=== PATIENT | female | born 1975 | race Caucasian/White ===

== ENCOUNTER 2022-11-06 07:25 | Day surgery (SDC) | payer BC, SELFPAY ==
[2022-11-06] VITALS (14 sets, daily range): BP systolic 102–137; BP diastolic 48–78; PULSE 50–74; RESP 14–18; TEMP 36.3–36.9; O2SAT 93–98; BMI 46.2
[2022-11-06] MEDS: LACTATED RINGERS 1000 ML 1,000 ML 100 ML IV (06:55)
[2022-11-06] MEDS: SODIUM CHLORIDE 0.9 % (FLUSH) 10 ML SYRINGE IVF (08:05)
--- NOTE | 2022-11-06 08:07 | SUR.PREOP ---
Pts states she has had a hysterectomy no ucg needed
--- NOTE | 2022-11-06 08:47 | W.ANESCHARGE ---
Anesthesia Charges Start Date/Time Anesthesia Start Date: 11/06/22 Anesthesia Start Time: 08:51 Stop Date/Time Anesthesia Stop Date: 11/06/22 Anesthesia Stop Time: 10:56
[2022-11-06] MEDS: CEFAZOLIN 1 GM inj 3 GM IVP (09:03)
--- NOTE | 2022-11-06 10:22 | PM.GSPRC ---
Operative Note Date of procedure: 11/06/22 Pre-op diagnosis: Ventral hernia, incarcerated omentum Post-op diagnosis: Same Type of Procedure: Open ventral hernia repair with placement of mesh Indications: Patient is a 47-year-old female who presented to clinic with a symptomatic ventral hernia. Different treatment options were reviewed, including observation versus surgical intervention. Risks and benefits of operative intervention were discussed at length with the patient. Risks included but was not limited to: Bleeding, infection, risk of damage to surrounding structures, possible need for additional procedures, risk of recurrent and postoperative complications such as pneumonia, pulmonary emboli or CO. All questions and concerns were addressed with the patient agreeing to proceed. Procedure Description: After discussing the risks and benefits of the procedure, the patient signed informed consent.? The operative site was marked and the patient was brought to the operating room and placed on the operating table in supine position.? Care was taken to pad the patient's pressure points.?? The patient was then intubated by anesthesia.?? The operative site was then prepped and draped in the usual sterile fashion.? A time-out was then performed. A supraumbilical midline incision was made with a 15 blade scalpel. Subcutaneous tissue was dissected down with cautery. The hernia sac was encountered within the subcutaneous space. This was carefully dissected free circumferentially from the underlying fascia. Evidence of incarcerated omentum and preperitoneal fat. There was no evidence of any incarcerated bowel. The fascial defect measured approximately 4 cm x 4 cm in size. The fascia was cleared off circumferentially with electrocautery of subcutaneous fat. Once the hernia sac was dissected free from the fascial defect it was able to be reduced intra-abdominally. There was evidence of a small inferior defect, this was connected with the large defect by dissecting the fascial bridge. The resulting defect then measured 5 cm vertical by 4 cm transverse. A preperitoneal space was developed circumferentially to allow placement of a large piece of mesh. A Ventralight ST large, 8 cm circular mesh was chosen for the repair. The mesh was carefully placed within the preperitoneal pocket. It was secured in place transfascially at 6 points with interrupted 2 0 Prolene. The fascial defect was then closed with a running 0 Vicryl stitch, appropriately covering the entire mesh. The fascia was anesthetized with 0.25% Marcaine. Hemostasis was assured with electrocautery. The incision was then irrigated with normal saline. The incision was closed in layers with interrupted 2 0 Vicryl to bring together the subcutaneous space. 3-0 Vicryl was used to bring together the dermal edges and the subcutaneous tissue was brought together by running 4-0 Monocryl stitch. ? Sterile dressings were then applied and an abdominal binder placed. ? The patient was then woken and transported to the recovery area in stable condition. ? The patient tolerated the procedure well. Findings: Large ventral hernia, repaired with mesh. Anesthesia: GETA Surgeon: Aubree Skinner MD Estimated blood loss (mL): 15 Condition: stable Disposition: same day
[2022-11-06] MEDS: BUPIVACAINE 0.25% 30 ML INJECTION (10:35)
--- NOTE | 2022-11-06 10:55 | W.ANESCHARGE ---
Anesthesia Charges Start Date/Time Anesthesia Start Date: 11/06/22 Anesthesia Start Time: 08:51 Stop Date/Time Anesthesia Stop Date: 11/06/22 Anesthesia Stop Time: 10:56
[2022-11-06] MEDS: fentaNYL 100 MCG/2 ML inj 50 MCG IVP ×2 (11:09→11:19)
[2022-11-06] MEDS: KETOROLAC 15 MG/ML inj IVP (11:16)
[2022-11-06] MEDS: OXYCODONE 5 MG TABLET PO (11:42)
== END 2022-11-06 12:47 | disposition home or self-care (01) ==
LOC: OR 07:27
PROVIDERS: PCP Student in an Organized Health Care Education/Training Program; Visit Provider Surgery
PROC: (CPT 49594; principal; 2022-11-06 08:45)
DX: K43.6 Other and unspecified ventral hernia with obstruction, without gangrene (principal)
CPT/HCPCS: 49594; 00752; A4467; A9270; C1781; J0330; J0690; J1100; J1170; J1885; J2250; J2405; J2704; J2710; J3010; J3490; J7120

== ENCOUNTER 2023-02-07 09:41 | Emergency (ER) | payer BC, SELFPAY ==
[2023-02-07] VITALS (16 sets, daily range): BP systolic 125–179; BP diastolic 69–93; PULSE 62–86; RESP 20; TEMP 36.4; O2SAT 94–100; BMI 45.8
--- NOTE | 2023-02-07 09:56 | ED_ITS ---
HPI - Chest Pain General Time Seen by Provider: 09:56 Date Seen: 02/07/23 Chief Complaint: Chest Pain Stated Complaint: Elevated heartrate, short of breath Time Seen by Provider: 02/07/23 09:56 Source: patient, RN notes reviewed and old records reviewed Mode of arrival: ambulatory Limitations: no limitations History of Present Illness HPI narrative: Judie is a very pleasant 47-year-old female with history of white coat hypertension who comes to the emergency room after experiencing prolonged episode of chest pain with shortness of breath earlier at work. Patient notes that she has been under particular stress and describes difficulty sleeping and a lots of drama at work. She states that today she was at work and felt her heart start racing and beating very heavily in her chest. She then became diaphoretic and she could not catch her breath. Coworkers also told her that she ?looked awful?. This has happened once or twice before to her but she states that she usually just goes home takes a nap and feels better. She has a known ascending aortic aneurysm initially documented in 2019. Recent see follow-up notes no change. Currently in the emergency room she thinks she is feeling better. She is still quite tearful. She notes that she actually felt better when she left work. Patient had abdominal surgery 2 months ago to repair a ventral hernia. She has not noticed any unusual lower extremity edema or calf pain. She has not had DVT in the past. Related Data Home Medications Medication Instructions Recorded Confirmed cyanocobalamin (vitamin B-12) 1,000 mcg PO DAILY 11/05/22 11/06/22 1,000 mcg capsule furosemide 20 mg tablet (Lasix) 20 mg PO DAILY 11/05/22 11/06/22 metoprolol succinate 50 mg 50 mg PO DAILY 11/05/22 11/06/22 tablet,extended release 24 hr sennosides 8.6 mg-docusate sodium 1 tab-cap PO DAILY 11/05/22 11/06/22 50 mg capsule Previous Rx's Medication Instructions Recorded estradiol 0.5 mg tablet 0.5 mg PO QDAY #90 tabs 06/18/22 oxycodone 5 mg tablet 5 mg PO Q6H PRN pain #20 tabs 11/06/22 Allergies Allergy/AdvReac Type Severity Reaction Status Date / Time fluocinolone acetonide Allergy Mild contraindicated Verified 02/07/23 11:39 with aneurysm oxycodone Allergy Unknown Verified 02/07/23 11:39 Review of Systems Status of ROS Reports: 10 or more systems reviewed and unremarkable except as noted in History and below Const Denies: fever, chills or change in weight Eyes Denies: change in vision ENMT Denies: throat pain, neck pain, throat swelling or difficulty swallowing Cardio Reports: chest pain, lightheadedness and shortness of breath with exertion; Denies: palpitations or swelling of feet/ankles Resp Reports: shortness of breath; Denies: cough or wheezing GI Denies: abdominal pain, nausea, vomiting, diarrhea or difficulty swallowing Denies: painful urination Musculo Denies: back pain or neck pain Neuro Denies: headache, numbness in extremities, confusion or slurred speech Psych Reports: anxiety and panic attacks Endo Denies: excessive urination Allergy/Immuno Denies: throat swelling or wheezing PFSH PFSH Medical History Ascending aortic aneurysm ?I71.21 - Aneurysm of the ascending aorta, without rupture (ICD-10) Asthma ?J45.909 - Unspecified asthma, uncomplicated (ICD-10) Depression ?F32.A - Depression, unspecified (ICD-10) Common migraine ?G43.009 - Migraine without aura, not intractable, without status migrainosus (ICD-10) Surgical History Hx of wisdom tooth extraction ?K08.409 - Partial loss of teeth, unspecified cause, unspecified class (ICD- 10) Hx of total hip arthroplasty ?Z96.649 - Presence of unspecified artificial hip joint (ICD-10) Hx of dilation and curettage ?Z98.890 - Other specified postprocedural states (ICD-10) History of cardiac radiofrequency ablation ?Z98.890 - Other specified postprocedural states (ICD-10) Social History Smoking Status: Never smoker Do you use any of these nicotine containing products: None How often do you have a drink containing alcohol: monthly or less Alcohol type: wine How many standard drinks containing alcohol do you have on a typical day: 1 or 2 How often do you have six or more drinks on one occasion: Never AUDIT-C Alcohol total score: 1 Non-prescribed substance use: denies use Caffeine: Yes (diet coke) Are you using contraception or practicing any form of control: No Exam Narrative Exam Narrative: Patient is alert and oriented. Tearful when discussing increased stressors at home and work. Mentating normally with a GCS of 15. Head is atraumatic normocephalic. Neck is supple. Heart with a regular rate and rhythm. Lungs are clear bilaterally. Abdomen is soft and nontender. No pulsating mass. Lower extremity show scant peripheral edema. No calf tenderness and negative Homans sign. Moving all extremities without difficulty. Const Vital Signs, click to edit/add: Vital Signs - 24 hr 02/07/23 09:49 02/07/23 10:25 02/07/23 10:30 Temperature 97.5 F L Pulse Rate 70 70 Pulse Rate [Pulse Oximeter] 86 Respiratory Rate 20 Blood Pressure Blood Pressure [Right Upper Arm] 160/93 H Pulse Oximetry 98 99 98 Oxygen Delivery Method Room Air 02/07/23 10:32 02/07/23 10:45 02/07/23 11:13 Temperature Pulse Rate 71 66 78 Pulse Rate [Pulse Oximeter] Respiratory Rate Blood Pressure 133/69 Blood Pressure [Right Upper Arm] Pulse Oximetry 98 96 94 Oxygen Delivery Method 02/07/23 11:15 02/07/23 11:30 02/07/23 11:32 Temperature Pulse Rate 73 76 71 Pulse Rate [Pulse Oximeter] Respiratory Rate Blood Pressure 179/92 H Blood Pressure [Right Upper Arm] Pulse Oximetry 99 99 98 Oxygen Delivery Method 02/07/23 11:45 02/07/23 12:00 02/07/23 12:02 Temperature Pulse Rate 67 64 62 Pulse Rate [Pulse Oximeter] Respiratory Rate Blood Pressure 138/80 Blood Pressure [Right Upper Arm] Pulse Oximetry 98 96 98 Oxygen Delivery Method 02/07/23 12:03 02/07/23 12:15 02/07/23 12:30 Temperature Pulse Rate 63 67 62 Pulse Rate [Pulse Oximeter] Respiratory Rate Blood Pressure Blood Pressure [Right Upper Arm] Pulse Oximetry 98 97 100 Oxygen Delivery Method 02/07/23 12:32 Temperature Pulse Rate 68 Pulse Rate [Pulse Oximeter] Respiratory Rate Blood Pressure 125/87 Blood Pressure [Right Upper Arm] Pulse Oximetry 100 Oxygen Delivery Method Documenting provider has reviewed patient's vital signs: yes Course Course Hospital Course: At this time differential diagnosis includes but is not limited to panic attack, acute coronary event, arrhythmia, aortic pathology change, PE, Discussed with patient that she may be correct in the fact that this could have been a panic attack given pre-existing stressors. However, I would suggest laboratory values to be drawn including CBC, comprehensive, troponin, D-dimer as well as chest x-ray and EKG. She elects to do this as she has not had workup when these events happened in the past. Reevaluation(s) Reevaluation #1: Patient noted to have a reassuring EKG as well as troponin but a modest elevation of her D-dimer. Given recent history of intra-abdominal surgery will pursue CT of the chest to rule out PE. Patient is receptive of this plan. Reevaluation #2: CT negative for PE change in aneurysm size. Will follow up with ultrasound secondary to elevated D-dimer Reevaluation #3: Ultrasound negative for DVT. Patient continues to feel well. No evidence of arrhythmia on director digital catalogue. Vital Signs Vital signs: Initial Vital Signs Temperature 97.5 F L 02/07/23 09:49 Temperature Source Temporal Artery Scan 02/07/23 09:49 Pulse Rate 86 02/07/23 09:49 Respiratory Rate 20 02/07/23 09:49 Blood Pressure 160/93 H 02/07/23 09:49 Blood Pressure Mean 115 H 02/07/23 09:49 Blood Pressure Position Sitting 02/07/23 09:49 Pulse Oximetry 98 02/07/23 09:49 Oxygen Delivery Method Room Air 02/07/23 09:49 Vital Signs Temperature 97.5 F L 02/07/23 09:49 Pulse Rate 86 02/07/23 09:49 Respiratory Rate 20 02/07/23 09:49 Blood Pressure 160/93 H 02/07/23 09:49 Pulse Oximetry 98 02/07/23 09:49 Oxygen Delivery Method Room Air 02/07/23 09:49 Temperature 97.5 F L 02/07/23 09:49 Pulse Rate 68 02/07/23 12:32 Respiratory Rate 20 02/07/23 09:49 Blood Pressure 125/87 02/07/23 12:32 Pulse Oximetry 100 02/07/23 12:32 Oxygen Delivery Method Room Air 02/07/23 09:49 MDM - Chest Pain MDM Narrative Medical decision making narrative: 1. Atypical chest pain-patient had resolution of chest pain prior to arrival. Troponin negative x2. EKGs reassuring with normal sinus rhythm and no acute changes. Chest x-ray without evidence of widened mediastinum. No evidence of acute coronary syndrome. 2. Elevated D-dimer-no evidence of PE, aortic dissection or DVT. 3. Disposition -home at this time. Suggest follow-up with primary MD for further evaluation regarding anxiety and stress reactions. Seek medical attention return to the emergency room for worsening symptoms. Medical Records Data Attestation: I reviewed the patient's medical records. Lab Data Attestation: I reviewed the patient's lab results. Labs: Lab Results 02/07/23 02/07/23 Range/Units 10:00 12:10 WBC 4.48 L (4.50-11.00) K/uL RBC 4.05 (4.00-5.20) m/uL Hgb 11.4 L (12.0-16.0) gm/dL Hct 34.8 (33.0-51.0) % MCV 86 (80-100) fL MCH 28 (26-34) pg MCHC 33 (32-36) gm/dL RDW Coeff of Nayeli 13.1 (11.5-15.5) % Plt Count 266 (140-440) K/uL Neut % (Auto) 55.6 (42.0-72.0) % Lymph % (Auto) 26.3 (20-44) % [place] % (Auto) 9.4 (0.0-11.0) % Eos % (Auto) 8.3 H (0.0-7.0) % Baso % (Auto) 0.4 (0.0-3.0) % Neut # (Auto) 2.50 (1.7-7.0) K/uL Lymph # (Auto) 1.20 (0.90-2.90) K/uL [place] # (Auto) 0.40 (0.00-0.90) K/UL Eos # (Auto) 0.40 (0.00-0.50) K/uL Baso # (Auto) 0.00 (0.00-0.30) K/uL D-Dimer Quant (PE/DVT) 0.86 H (0.00-0.50) ug/ml Sodium 138 (135-149) mmol/L Potassium 3.9 (3.6-5.1) mmol/L Chloride 108 (96-114) mmol/L Carbon Dioxide 24 (20-32) mmol/L BUN 27 H (5-24) mg/dL Creatinine 0.7 (0.5-1.5) mg/dL Estimated Creat Clear 87.48 Estimated GFR 106 ml/min Glucose 107 (60-115) mg/dL Calcium 9.3 (8.4-10.6) mg/dL Magnesium 1.9 (1.5-2.6) mg/dL Total Bilirubin 0.2 (0.1-1.5) mg/dL AST 26 (12-35) U/L ALT 22 (4-35) U/L Alkaline Phosphatase 39 L (40-150) U/L Total Protein 7.1 (6.0-8.3) g/dL Albumin 4.3 (3.3-5.0) g/dL POC Troponin I 0.00 L 0.01 (0.01-0.04) ng/ml Imaging Data Chest x-ray: Attestation: I have reviewed the pertinent imaging results. My impression: No obvious infiltrates or widening of the mediastinum Radiologist's impression: Cardiovasculature and mediastinum:? Heart size and vasculature are normal in caliber and appearance.? Lungs and pleural spaces:? Lungs are clear.? No sign of infiltrate or mass. ?No sign of pleural effusion.? No pneumothorax.? Bones and soft tissues:? No significant findings. IMPRESSION: No acute or significant findings. CT scan - chest: Attestation: I have reviewed the pertinent imaging results. My impression: By my read no evidence of large PE. Radiologist's impression: Heart and vasculature: Contrast opacification of the pulmonary arterial tree is adequate. No sign of pulmonary embolism. Heart size is mildly enlarged. Thoracic aorta and pulmonary artery are normal in caliber. Lungs and pleura: No suspicious nodules or infiltrates.? No pleural effusions, pleural thickening, or pneumothorax. Lymph nodes/mediastinum: No mediastinal, hilar, or axillary adenopathy. Small hiatal hernia Chest wall: No masses. Upper abdomen: No acute or significant findings. Bones: Unremarkable for age. IMPRESSION: No pulmonary embolism identified. No acute cardiopulmonary process identified. Venous US: Attestation: I have reviewed the pertinent imaging results. Radiologist's impression: Deep veins: Sonographic imaging demonstrates the right common femoral, deep femoral, superficial femoral, popliteal, posterior tibial and the contralateral right common femoral veins to be fully compressible with normal color Doppler blood flow. Superficial veins: Greater saphenous vein is fully compressible. There is a left-sided 5.4 x 1.7 x 1.9 centimeter Thurston`s cyst. IMPRESSION: 1. Negative for DVT. 2. Left Thurston`s cyst. ECG Data Attestation: I personally reviewed and interpreted this ECG as follows: ECG interpretation date: 02/07/23 Interpretation: EKG by my read shows sinus rhythm at a rate of 73. No acute ST or T-wave seng nges. QT and UT intervals are also normal. EKG 2. By my read continues to show sinus rhythm without any acute ST or T-wave changes. Discharge Plan Discharge Clinical Impression: Atypical chest pain Patient Disposition: Home, Self-Care Condition: Improved Additional Instructions: Recommend rest and pushing fluids. Please follow-up with your primary MD for management of stress and anxiety. Return to the emergency room for worsening symptoms. Prescriptions: No Action cyanocobalamin (vitamin B-12) 1,000 mcg capsule 1,000 mcg PO DAILY furosemide [Lasix] 20 mg tablet 20 mg PO DAILY Hold Instructions: Doctor's Order metoprolol succinate 50 mg tablet extended release 24 hr 50 mg PO DAILY Hold Instructions: Doctor's Order sennosides-docusate sodium 8.6-50 mg capsule 1 tab-cap PO DAILY Hold Instructions: Doctor's Order oxycodone 5 mg tablet 5 mg PO Q6H PRN (Reason: pain) Qty: 20 0RF estradiol 0.5 mg tablet 0.5 mg PO QDAY Qty: 90 0RF Rx Instructions: Please call the [facility] at [phone] to schedule your annual exam previous to requiring future refills. Follow Up/Referrals: Nadine Hazel PA-C [Primary Care Provider] - Stand Alone Forms: [facility] Info Instructions
--- NOTE | 2023-02-07 10:12 | CRLHL7_ITS ---
For Patients: As a result of the Century Cures Act, medical imaging exams and procedure reports are released immediately into your electronic medical record. You may view this report before your referring provider. If you have questions, please contact your health care provider. INDICATION: Chest pain. TECHNIQUE: Chest 1 views. COMPARISON: None. FINDINGS: Cardiovasculature and mediastinum: Heart size and vasculature are normal in caliber and appearance. Lungs and pleural spaces: Lungs are clear. No sign of infiltrate or mass. No sign of pleural effusion. No pneumothorax. Bones and soft tissues: No significant findings. IMPRESSION: No acute or significant findings. Dictated by El York MD @ 02/07/2023 11:03:42 AM (Electronically Signed)
[2023-02-07 10:21] LABS: Basophils Percent Auto 0.4 % (0.0-3.0); Eosinophils Percent Auto 8.3 % (0.0-7.0); Hematocrit 34.8 % (33.0-51.0); Hemoglobin* 11.4 gm/dL (12.0-16.0); Lymphocytes Percent Auto 26.3 % (20-44); Mean Corpuscular HGB Conc 33 gm/dL (32-36); Mean Corpuscular Hemoglobin 28 pg (26-34); Mean Corpuscular Volume 86 fL (80-100); Monocytes Percent Auto 9.4 % (0.0-11.0); Neutrophils Percent Auto 55.6 % (42.0-72.0); Platelet Count* 266 K/uL (140-440); RDW Coefficient of Variation % 13.1 % (11.5-15.5); Red Blood Count 4.05 m/uL (4.00-5.20); White Blood Count* 4.48 K/uL (4.50-11.00)
[2023-02-07 10:31] LABS: D Dimer Quantitative* 0.86 ug/ml (0.00-0.50)
[2023-02-07 10:33] LABS: Albumin* 4.3 g/dL (3.3-5.0); Slide Review Reflex No
[2023-02-07 10:34] LABS: Chloride* 108 mmol/L (96-114); Potassium* 3.9 mmol/L (3.6-5.1); Sodium* 138 mmol/L (135-149)
[2023-02-07 10:36] LABS: Bilirubin Total* 0.2 mg/dL (0.1-1.5); Carbon Dioxide* 24 mmol/L (20-32); Creatinine* 0.7 mg/dL (0.5-1.5); Est. Creatinine Clearance* 87.48; Estimated Glomerular Filt Rate 106 ml/min
[2023-02-07 10:37] LABS: Alanine Aminotransferase* 22 U/L (4-35); Alkaline Phosphatase* 39 U/L (40-150); Aspartate Amino Transferase* 26 U/L (12-35); Blood Urea Nitrogen* 27 mg/dL (5-24); Calcium* 9.3 mg/dL (8.4-10.6); Glucose* 107 mg/dL (60-115); Magnesium* 1.9 mg/dL (1.5-2.6); Total Protein* 7.1 g/dL (6.0-8.3)
--- NOTE | 2023-02-07 10:48 | CRLHL7_ITS ---
For Patients: As a result of the Century Cures Act, medical imaging exams and procedure reports are released immediately into your electronic medical record. You may view this report before your referring provider. If you have questions, please contact your health care provider. INDICATION: Chest pain, elevated D-dimer.. TECHNIQUE: CT chest PE was acquired with 95 cc Isovue 370 IV contrast. COMPARISON: None. FINDINGS: Heart and vasculature: Contrast opacification of the pulmonary arterial tree is adequate. No sign of pulmonary embolism. Heart size is mildly enlarged. Thoracic aorta and pulmonary artery are normal in caliber. Lungs and pleura: No suspicious nodules or infiltrates. No pleural effusions, pleural thickening, or pneumothorax. Lymph nodes/mediastinum: No mediastinal, hilar, or axillary adenopathy. Small hiatal hernia Chest wall: No masses. Upper abdomen: No acute or significant findings. Bones: Unremarkable for age. IMPRESSION: No pulmonary embolism identified. No acute cardiopulmonary process identified. Please note that all CT scans at this facility use dose modulation, iterative reconstruction, and/or weight-based dosing when appropriate to reduce radiation dose to as low as reasonably achievable. Dictated by Robyn Busby MD @ 02/07/2023 12:19:52 PM (Electronically Signed)
--- NOTE | 2023-02-07 12:22 | CRLHL7_ITS ---
For Patients: As a result of the Century Cures Act, medical imaging exams and procedure reports are released immediately into your electronic medical record. You may view this report before your referring provider. If you have questions, please contact your health care provider. INDICATION: Leg pain and swelling. TECHNIQUE: Ultrasound venous duplex bilateral lower extremity. Compression venous exam was performed using heller-scale, color Doppler, and spectral Doppler analysis. COMPARISON: None. FINDINGS: Deep veins: Sonographic imaging demonstrates the right common femoral, deep femoral, superficial femoral, popliteal, posterior tibial and the contralateral right common femoral veins to be fully compressible with normal color Doppler blood flow. Superficial veins: Greater saphenous vein is fully compressible. There is a left-sided 5.4 x 1.7 x 1.9 centimeter Thurston`s cyst. IMPRESSION: 1. Negative for DVT. 2. Left Thurston`s cyst. Dictated by El York MD @ 02/07/2023 1:50:57 PM (Electronically Signed)
[2023-02-07 13:05] LABS: Troponin, Point-of-Care* 0.01 ng/ml (0.01-0.04)
== END 2023-02-07 14:27 | disposition home or self-care (01) ==
PROVIDERS: Emergency Provider Family Medicine; PCP Student in an Organized Health Care Education/Training Program
DX: R07.9 Chest pain, unspecified (principal)
CPT/HCPCS: 36415; 71045; 71260; 80053; 83735; 84484; 85025; 85379; 93005; 93970; 99284; 99285; Q9967